=== PATIENT | male | born 1990 ===

== ENCOUNTER 2017-05-13 15:51 | Emergency (ER) | payer MEDICAID ==
[2017-05-13 16:02] VITALS: PULSE 82; RESP 18; TEMP 98.9; O2SAT 100
--- NOTE | 2017-05-13 16:43 | ED PDOC ---
HPI: Male Pain Time Seen by Provider: 05/13/17 16:08 Chief Complaint (Nursing): Male Genitourinary Chief Complaint (Provider): Male Genitourinary History Per: Patient History/Exam Limitations: no limitations Onset/Duration Of Symptoms: Days (x2 weeks) Current Symptoms Are (Timing): Still Present Additional Complaint(s): Ayan Campos is a 26 year old male who presents to the emergency department, accompanied by his mother, with a complaint of worsening left testicular pain ongoing for 2 weeks status post heavy lifting. Denied nausea, vomiting, dysuria or hematuria. PMD: none provided Past Medical History Reviewed: Historical Data, Nursing Documentation, Vital Signs Vital Signs: Last Vital Signs Temp 98.9 F 05/13/17 15:58 Pulse 82 05/13/17 15:58 Resp 18 05/13/17 15:58 BP Pulse Ox 100 05/13/17 15:58 - Medical History PMH: No Chronic Diseases - Surgical History Surgical History: No Surg Hx - Family History Family History: States: Unknown Family Hx - Social History Current smoker - smoking cessation education provided: No Ex-Smoker (has not smoked in the last 12 months): No Alcohol: None Drugs: Denies - Home Medications Home Medications: Ambulatory Orders Medication Instructions Recorded Bacitracin OINT 1 applic TP DAILY #1 tube 03/16/15 Cephalexin [cephalexin] 500 mg PO BID #20 cap 03/16/15 Pramoxine HCl/Zinc Acetate 120 ml TP DAILY #1 lot 03/16/15 [Caladryl Clear 1%-0.1% 177 ml] Prednisone 20 mg PO BID #8 tab 03/16/15 Cephalexin [Keflex] 500 mg PO Q6 #28 cap 02/14/16 DiphenhydrAMINE [Benadryl] 50 mg PO Q8 PRN #30 cap 02/14/16 guaiFENesin/Codeine 10 ml PO Q8H #150 ml 09/15/16 predniSONE [predniSONE Tab] 20 mg PO DAILY #12 tab 09/15/16 Ciprofloxacin HCl [Cipro] 500 mg PO BID #20 tab 05/13/17 Naproxen [Naprosyn] 500 mg PO Q12H #20 tab 05/13/17 - Allergies Allergies/Adverse Reactions: Allergies Allergy/AdvReac Type Severity Reaction Status Date / Time No Known Allergies Allergy Verified 02/14/16 15:15 Review of Systems ROS Statement: Except As Marked, All Systems Reviewed And Found Negative Gastrointestinal: Negative for: Nausea, Vomiting Genitourinary Male: Positive for: Other (left testicular pain). Negative for: Dysuria, Hematuria Physical Exam - Reviewed Nursing Documentation Reviewed: Yes Vital Signs Reviewed: Yes - Physical Exam Appears: Positive for: Well, Non-toxic, No Acute Distress Head Exam: Positive for: ATRAUMATIC, NORMAL INSPECTION, NORMOCEPHALIC Cardiovascular/Chest: Positive for: Regular Rate, Rhythm. Negative for: Chest Non Tender Respiratory: Positive for: Normal Breath Sounds, Accessory Muscle Use. Negative for: Decreased Breath Sounds, Respiratory Distress Gastrointestinal/Abdominal: Positive for: Normal Exam, Bowel Sounds, Soft. Negative for: Tenderness Male Genital Exam: Positive for: inguinal tenderness (left), testicular tenderness (L) (inferiorly). Negative for: no hernia (palpable), lesions (or mass of testes or penis), urethral discharge Neurologic/Psych: Positive for: Alert, Oriented - Laboratory Results Result Diagrams: 05/13/17 16:50 05/13/17 17:12 - ECG O2 Sat by Pulse Oximetry: 100 (RA) Pulse Ox Interpretation: Normal Medical Decision Making Medical Decision Making: Initial Impression: Testicular pain Initial Plan: * CMP * CBC * Urinalysis * US testes Scribe Attestation: Documented by Anu Mariscal, acting as a scribe for Tyler Kay MD. Provider Scribe Attestation: All medical record entries made by the Scribe were at my direction and personally dictated by me. I have reviewed the chart and agree that the record accurately reflects my personal performance of the history, physical exam, medical decision making, and the department course for this patient. I have also personally directed, reviewed, and agree with the discharge instructions and disposition. Disposition - Clinical Impression Clinical Impression: Varicocele - Patient ED Disposition Is Patient to be Admitted: No Counseled Patient/Family Regarding: Studies Performed, Diagnosis, Need For Followup, Rx Given - Disposition Referrals: Natalio Santana MD [Medical Doctor] - Disposition: Routine/Home Disposition Time: 18:16 Condition: FAIR Prescriptions: Ciprofloxacin HCl [Cipro] 500 mg PO BID #20 tab Naproxen [Naprosyn] 500 mg PO Q12H #20 tab Instructions: Varicocele (ED) Forms: [employer] (Sami)
[2017-05-13 17:19] LABS: BASO # 0.1 K/uL (0.0-0.2); BASO % 0.9 % (0.0-2.0); EOS # 0.5 K/uL (0.0-0.7); EOS % 4.1 % (0.0-4.0); HEMATOCRIT 46.2 % (35.0-51.0); LYMPH # 4.5 K/uL (1.0-4.3); LYMPH % 34.3 % (20.0-40.0); MEAN CORPUSCULAR HEMOGLOBIN 29.7 pg (27.0-31.0); MEAN CORPUSCULAR HGB CONC 33.4 g/dL (33.0-37.0); MEAN PLATELET VOLUME 7.3 fl (7.2-11.7); MONO % 7.8 % (0.0-10.0); NEUT # 6.9 K/uL (1.8-7.0); NEUT % 52.9 % (50.0-75.0); NRBC % 0.1 % (0.0-0.0); WHITE BLOOD COUNT 13.1 K/uL (4.8-10.8)
[2017-05-13 17:36] LABS: RBC URINE 2 /hpf (0-3); URINE BACTERIA RARE (<OCC); URINE BILIRUBIN NEGATIVE (NEGATIVE); URINE BLOOD NEGATIVE (NEGATIVE); URINE COLOR YELLOW (YELLOW); URINE GLUCOSE (UA) NEG (Normal); URINE KETONE NEGATIVE (NEGATIVE); URINE LEUKOCYTE ESTERASE SMALL Leu/uL (Negative); URINE PROTEIN NEGATIVE (NEGATIVE); WBC URINE 3 /hpf (0-5)
[2017-05-13 17:46] LABS: ALB/GLOB RATIO 1.4 (1.0-2.1); ALKALINE PHOSPHATASE 58 U/L (38-126); ALT/SGPT 43 U/L (21-72); AST/SGOT 26 U/L (17-59); BILIRUBIN,TOTAL 0.9 mg/dl (0.2-1.3); BLOOD UREA NITROGEN 12 mg/dl (9-20); CALCIUM 9.5 mg/dL (8.4-10.2); CARBON DIOXIDE 22 mmol/L (22-30); CHLORIDE 104 mmol/L (98-107); GFR AFRICAN-AMERICAN > 60; GLUCOSE,RANDOM 82 mg/dL (75-110); POTASSIUM 4.1 MMOL/L (3.6-5.0); SODIUM 143 mmol/l (132-148); TOTAL PROTEIN 8.2 G/DL (6.3-8.2)
--- NOTE | 2017-05-13 18:41 | US ---
HISTORY: left testicular pain TECHNIQUE: Realtime sonography through the scrotum with color and doppler flow. COMPARISON: None Available. FINDINGS: RIGHT TESTICLE: Measures 2.2 x 3.9 x 4.8 cm. Normal echotexture and flow. RIGHT EPIDIDYMIS: Epididymal head measures 0.7 x 0.9 x 1.2 cm. Grossly unremarkable appearance with normal flow. LEFT TESTICLE: Measures 2 x 2.9 x 4.3 cm. Normal echotexture and flow. LEFT EPIDIDYMIS: Epididymal head measures 0.6 x 1 x 1.0 cm. Grossly unremarkable appearance with normal flow. HYDROCELE: Base, unilateral right hydrocele VARICOCELE: Small, unilateral left varicocele OTHER FINDINGS: None. IMPRESSION: Negative study for epididymitis, orchitis, torsion Additional benign and/or incidental findings described above.
== END 2017-05-13 18:34 | disposition home or self-care (01) ==
LOC: H.ER 15:51
DX: I86.1 Scrotal varices (principal)